=== PATIENT | male | born 1945 | race Caucasian/White ===

== ENCOUNTER → 2016-12-01 | Outpatient (CLI) | payer OTHER | END | disposition home or self-care (01) | LOC: CA 11:00 | DX: R00.2 Palpitations (principal) ==

== ENCOUNTER 2017-01-03 15:03 | Emergency (ER) | payer OTHER ==
[~2017-01-03] VITALS: Ht 182.9 cm; Wt 139.2 kg
--- NOTE | 2017-01-03 15:45 | NUR ---
PT TO ED FOR EVAL OF SOB AND FEELING OF "PASSING OUT" SINCE LAST WEEK. PT STATES HE HAS BEEN HAVING EPISODES OF SOB THAT ARE NOT TRIGGERED BY EXERTION. UPON ARRIVAL TO ED PT. WAS FEELING SOB BUT IT HAS RESOLVED WHILE BEING IN ED. HE DOES CONTINUE TO STATE THAT HE FEELS LIKE HE WANTS TO PASS OUT. DENIES AND CP. PT CURRENTY SITTING IN HIGH FOWLERS POSITION FOR COMFORT. EKG COMPLETED. PT WAITING MSE. NO DISTRESS AT THIS TIME. CONTINUE TO MONITOR.
--- NOTE | 2017-01-03 16:25 | NUR ---
DR. MACE PERFORMED MSE
[2017-01-03 16:57] LABS: BASOPHIL % 0.5 % (0-2); PLATELET COUNT 294 x10^3mcL (130-400)
[2017-01-03 16:58] LABS: RED CELL DISTRIBUTION WIDTH 19.6 % (11.5-14.5)
[2017-01-03 17:03] LABS: CALCIUM 9.4 mg/dL (8.5-10.1); CHLORIDE SERUM 102 mmol/L (98-107); CREATININE SERUM 1.4 mg/dL (0.7-1.3); GLUCOSE SERUM 114 mg/dL (74-106); POTASSIUM SERUM 3.9 mmol/L (3.5-5.1); SODIUM SERUM 139 mmol/L (136-145)
[2017-01-03 17:15] LABS: AMPHETAMINE QUAL UR NONE DETECTED (NEG <=1000)
[2017-01-03 17:17] LABS: ALBUMIN 3.8 g/dL (3.4-5.0); ALKALINE PHOSPHATASE 61 U/L (46-116); ALT/SGPT 27 U/L (16-63); AST/SGOT 22 U/L (15-37); BILIRUBIN TOTAL 0.59 mg/dL (0.20-1.00); T4(THYROXINE) 10.3 ug/dL (4.7-13.3); TOTAL PROTEIN, SERUM 8.6 g/dL (6.4-8.2)
--- NOTE | 2017-01-03 17:22 | NUR ---
PT SITTING ON [facility]. NO S/S OF DISTRESS NOTED.
[2017-01-03 17:23] LABS: CK-MB 1.7 ng/mL (0-3.6)
[2017-01-03] MEDS ORDERED: METOPROLOL SUCC50 M2 PO (17:56)
[2017-01-03] MEDS ORDERED: FLO4 (17:57)
[2017-01-03] MEDS ORDERED: MIRTAZAPINE15 M2 (17:57)
[2017-01-03] MEDS ORDERED: DILTIAZEM HCL120 M2 (17:58)
[2017-01-03] MEDS ORDERED: ALPRAZOLAM1 MG (17:59)
[2017-01-03] MEDS ORDERED: CARDIZEM CD180 MG (17:59)
[2017-01-03] MEDS ORDERED: AZELASTINE137 MCG/Ac (18:00)
[2017-01-03 18:19] VITALS: BP 146/81
--- NOTE | 2017-01-03 18:19 | NUR ---
PT MEDICATED PER ORDER, VSS, DENIES CHEST PAIN, PER DR. MACE NITRO PASTE FOR POSSIBLE CHF/COPD EXACERBATION
--- NOTE | 2017-01-03 18:35 | NUR ---
CALLED RT FOR BREATHING TX
--- NOTE | 2017-01-03 18:46 | NUR ---
RT AT BEDSIDE FOR BREATHING TX
--- NOTE | 2017-01-03 19:15 | NUR ---
REPORT GIVEN TO OSCAR ROME TO ASSUME CARE.
--- NOTE | 2017-01-03 19:17 | NUR ---
RESIDENT CAME TO ED TO SPEAK WITH PT PRIOR TO GOING UP, PT REQUESTING TO SIGN OUT AMA, PT WANTS [facility], DR. MACE NOTIFIED, AWAITING DISCHARGE AND AMA PAPERWORK FROM RESIDENT
--- NOTE | 2017-01-03 19:20 | NUR ---
DR. MACE AT BEDSIDE
--- NOTE | 2017-01-03 19:36 | NUR ---
PT SIGNED OUT AMA. DR. MACE SPOKE TO PATIENT ABOUT ALL RISKS. PT STATED HE UNDERSTOOD ALL RISKS. PT PLANS TO FOLOOW UP WITH PCP TOMORROW.
[2017-01-03 20:58] LABS: T3 TOTAL 1.28 ng/mL
[2017-01-03 21:04] LABS: FREE T4 1.17 ng/dL (0.76-1.46); FREE THYROXINE INDEX 3.5 ug/dL (1.4-4.5); MAGNESIUM 1.9 mg/dL (1.8-2.4); PHOSPHOROUS 3.4 mg/dL (2.5-4.9); T4(THYROXINE) 10.6 ug/dL (4.7-13.3)
[2017-01-03 21:05] LABS: CHOLESTEROL/HDL RATIO 5.6
--- NOTE | 2017-01-04 08:15 | NUR ---
ECHO NOT COMPLETED PT. DISCHAGED FROM ED
== END 2017-01-03 19:37 | disposition left against medical advice (07) ==
LOC: ED 15:03 → DU 18:56 → ED 18:56
PROVIDERS: Emergency Medicine; Family Medicine Sports Medicine
DX: R06.02 Shortness of breath (principal); I10 Essential (primary) hypertension; J44.9 Chronic obstructive pulmonary disease, unspecified; Z88.1 Allergy status to other antibiotic agents; Z88.8 Allergy status to other drugs, medicaments and biological substances
CPT/HCPCS: 36600; 83880; 84439; J7613; Q0092